=== PATIENT | female | born 1990 | race Caucasian/White ===

== ENCOUNTER → 2017-01-08 | Outpatient (CLI) | payer BC | END | disposition home or self-care (01) | LOC: C.LAB1850 17:08 | PROVIDERS: ATTEND Obstetrics & Gynecology | DX: Z32.01 Encounter for pregnancy test, result positive (principal) ==

== ENCOUNTER → 2017-03-16 | Outpatient (CLI) | payer BC ==
[2017-03-16 11:07] LABS: ESTIMATED AVERAGE GLUCOSE 88 mg/dl; HA1C FLAG Normal (Normal)
[2017-03-16 11:15] LABS: THYROID STIMULATING HORMONE 1.38 uIu/ml (0.300-4.500)
== END | disposition home or self-care (01) ==
LOC: C.LAB 09:45
PROVIDERS: ATTEND Physician Assistant
DX: E28.2 Polycystic ovarian syndrome (principal)

== ENCOUNTER → 2018-06-26 | Outpatient (CLI) | payer BC ==
[2018-06-26 10:56] LABS: BASO % 0.3 %; BASO ABS # 0.02 K/uL (0-0.2); EOS % 1.5 %; EOS ABS # 0.11 K/uL (0-0.5); HEMATOCRIT 44.9 % (37-47); HEMOGLOBIN 15.5 g/dL (12.0-16.0); IG# 0.02 K/uL (0.00-0.02); LYMPH % 26.2 %; LYMPH ABS # 1.91 K/uL (1.2-3.4); MEAN CELL VOLUME 90.9 fL (80-100); MEAN CORPUSCULAR HEMOGLOBIN 31.4 pg (25-34); MEAN CORPUSCULAR HGB CONC 34.5 g/dl (32-36); MEAN PLATELET VOLUME 11.2 fL (7.4-10.4); MONO % 4.7 %; MONO ABS # 0.34 K/uL (0.11-0.59); NEUT ABS # 4.88 K/uL (1.4-6.5); PLATELET COUNT 258 K/uL (130-400); RED CELL DISTRIBUTION WIDTH CV 12.6 % (11.5-14.5); RED CELL DISTRIBUTION WIDTH SD 41.5 fL (36.4-46.3); WHITE BLOOD COUNT 7.28 K/uL (4.8-10.8)
[2018-06-26 11:28] LABS: HEMOGLOBIN A1C 5.1 % (4.5-5.6)
[2018-06-26 11:40] LABS: ALBUMIN 3.7 gm/dl (3.4-5.0); ALKALINE PHOSPHATASE 97 U/L (45-117); ALT/SGPT 60 U/L (12-78); AST/SGOT 24 U/L (15-37); BLOOD UREA NITROGEN 9 mg/dl (7-18); CALCIUM 8.8 mg/dl (8.5-10.1); CARBON DIOXIDE 25 mmol/L (21-32); CHOLESTEROL 145 mg/dl (0-200); CREATININE 0.67 mg/dl (0.60-1.20); GLUCOSE 81 mg/dl (70-99); LDL CHOLESTEROL CALCULATED 79 mg/dl; SODIUM 136 mmol/L (136-145); TOTAL PROTEIN 7.5 gm/dl (6.4-8.2)
== END | disposition home or self-care (01) ==
LOC: C.LAB1850 10:04
PROVIDERS: ATTEND Physician Assistant
DX: E88.81 Metabolic syndrome and other insulin resistance (principal); R53.83 Other fatigue

== ENCOUNTER 2019-05-29 07:34 | Inpatient (IN) ==
[2019-05-29] MEDS ORDERED: INSULIN REGULAR 250 UNITS in SODIUM CHLORIDE 0.9% 247.5 ML IV PRN ×2 (08:28→12:15)
[2019-05-29] MEDS ORDERED: OXYTOCIN 30 UNITS/500 ML BAG IV PRN ×2 (08:28→08:33)
[2019-05-29] MEDS ORDERED: SODIUM CHLORIDE 0.9% 1000ML 1,000 ML IV PRN (08:33)
[2019-05-29] MEDS ORDERED: DEXTROSE 50% 50 ML SYRINGE IV PRN (08:33)
--- NOTE | 2019-05-29 08:39 | History & Physical Report ---
Date of Service May 29, 2019 Assessment & Plan (1) Diabetes mellitus affecting in third trimester: Induction of labor. Cervix ripe s/p [place] which was gently removed during exam this morning via traction. Pitocin to begin now. Epidural on request; had consultation with anesthesia due to ankylosing spondylitis and was felt to be a candidate. Insulin protocol explained to patient and ordered, starting glucose 107 this AM on admission. Present on Admission?: Yes History of Present Illness Chief Complaint: Induction of labor for A2GDM, obesity, with SIUP @ term Primary Care Provider: Pia Nevarez Allergies Allergy/AdvReac Type Severity Reaction Status Date / Time Penicillins Allergy Mild Rash Verified 05/29/19 07:52 Home Medications Home Medications Medication Instructions Recorded Confirmed Type Humulin 70/30 U-100 Insulin 60 units SC HS 03/31/19 05/29/19 History PNV cmb#95-ferrous fumarate-FA 1 tab PO DAILY 03/31/19 05/29/19 History [] aspirin [Aspir-81] 81 mg PO DAILY 03/31/19 05/29/19 History insulin lispro [Humalog KwikPen 8 unit SUBCUT AC 03/31/19 05/29/19 History Insulin] Patient History Medical History BRAN 06/04/19 PCOS (polycystic ovarian syndrome) Asthma Rare albuterol use, only when sick. No maintenance meds. Obesity Ankylosing spondylitis Was previously on Humira and Enbrel, stopped due to to cost. Has had child care aide as well. Has not had imaging for > 10 years. No mobility is sues, does have occasional flare ups causing pain with flexion and extension, but can typically touch her toes. Gestational diabetes On insulin. History of tooth extraction Surgical History History of excision of pilonidal cyst Hx of cholecystectomy in 2011 H/O laparoscopy endometrosis Family History Other Asthma COPD (chronic obstructive pulmonary disease) Hepatitis C History of heart artery stent History of parathyroidectomy Myocardial infarction Social History Preferred Language: Icelandic Communication Ability: Effective Instructor Knitting Required: No Beliefs That Will Affect Care: None marital status: Current Living Situation: Spouse Feels Safe at Home: Yes Safety Concerns: Feels Safe At This Time Smoking Status: Former smoker Tobacco Type: cigarettes and e-cigarettes Second Hand Exposure: No Hx Alcohol Use: No Hx Substance Use: No Review of Systems All systems reviewed & are unremarkable except as noted in HPI & below Physical Exam Constitutional: WD/WN, vitals as above Respiratory: normal respiratory effort; no respiratory distress and does not use accessory muscles Cardiovascular: Rate/Rhythm: regular rate and regular rhythm Gastrointestinal (Abdomen): Obese, gravid, NT Genitourinary: Manual OB Exam: + cervical dilation 4 cm, + cervical effacement 50% and + station high OB Exam Monitor Tracing: + external FHT monitor used, + external uterine monitor used and + category I Cervix soft, posterior Results & Data Vital Signs (Past 12 Hours) Vital Signs Temp Pulse Resp BP 05/29/19 08:12 37.0 C 18 05/29/19 07:46 94 H 112/68
[2019-05-29 08:58] LABS: Hemoglobin 12.3 g/dL (12.0-16.0); Mean Corpuscular Volume 89.8 fL (80-100); Mean Platelet Volume 10.8 fL (7.4-10.4); Platelet Count 178 K/uL (130-400); RDW Coefficient of Variation 14.3 % (11.5-14.5); Red Blood Count 4.01 M/uL (4.2-5.4); White Blood Count 10.69 K/uL (4.8-10.8)
[2019-05-29 09:08] LABS: Mean Corpuscular Hgb Conc 34.2 g/dL (32-36)
[2019-05-29] MEDS ORDERED: CARBOHYDRATES FOR HYPOGLYCEMIA PO PRN (09:15)
[2019-05-29] MEDS ORDERED: GLUCOSE 10 TABS/TUBE PO PRN (09:15)
[2019-05-29] MEDS ORDERED: GLUCOSE 40% GEL 15 GM TUBE PO PRN (09:15)
[2019-05-29] MEDS ORDERED: GLUCAGON FOR INJ 1 MG VIAL IM PRN (09:15)
[2019-05-29] MEDS: DEXTROSE 5% 1,000 ML IV SCH ×2 (09:42→19:50)
[2019-05-29] MEDS: LACTATED RINGER'S 1,000 ML IV PRN ×3 (09:42→19:49)
[2019-05-29] MEDS ORDERED: ePHEDrine sulfate 50 MG/ML AMP ONE (11:56)
[2019-05-29] MEDS ORDERED: BUPIVACAINE 0.25% 30 ML VIAL ONE (11:56)
[2019-05-29] MEDS ORDERED: fentaNYL citrate 100 MCG/2 ML VIAL ONE (11:57)
[2019-05-29] MEDS ORDERED: fentaNYL 2MCG/ML ROPIV 1.25MG/ML 100 ML BAG EPI ONE (11:58)
--- NOTE | 2019-05-29 13:08 | Anesthesiology Consultation ---
Date of Service May 29, 2019 Assessment & Plan (1) Encounter for pre-operative examination: Chart Review Chart Review: Acceptable Risk for Labor Epidural and Patient seen in Pre Admission Testing Consults Requested none ASA ASA3 Proposed Anesthesia Anesthesia Type: Labor Epidural History Height/Weight Height: 5 ft 1 in Weight: 118.444 kg Allergies Allergy/AdvReac Type Severity Reaction Status Date / Time Penicillins Allergy Mild Rash Verified 05/29/19 07:52 Medications Home Medications Medication Instructions Recorded Confirmed Last Taken Humulin 70/30 U-100 Insulin 60 units SC HS 03/31/19 05/29/19 05/27/19 21:00 PNV cmb#95-ferrous fumarate-FA 1 tab PO DAILY 03/31/19 05/29/19 05/27/19 22:00 [] aspirin [Aspir-81] 81 mg PO DAILY 03/31/19 05/29/19 05/27/19 23:55 insulin lispro [Humalog KwikPen 8 unit SUBCUT AC 03/31/19 05/29/19 05/29/19 00:00 Insulin] Active Medications Generic Name Dose Route Start Last Admin Trade Name Freq PRN Reason Stop Dose Admin Dextrose 1,000 mls @ 100 mls/hr 05/29/19 08:45 05/29/19 11:45 D5w IV 06/28/19 08:44 100 mls/hr .Q10H POOJA Infusion Protocol Lactated Ringer's 1,000 mls @ 125 mls/hr 05/29/19 08:28 05/29/19 11:53 Lr IV 05/31/19 08:27 999 mls/hr .Q8H PRN Infusion L&D Protocol Protocol Oxytocin 30 units in 500 mls @ 7 mls/hr 05/29/19 08:33 05/29/19 11:30 Pitocin IV 05/31/19 08:32 0.42 units/hr .Q24H PRN 7 mls/hr Labor Induction/Augmentation Titration Protocol 0.42 UNITS/HR Past Medical History Medical History BRAN 06/04/19 PCOS (polycystic ovarian syndrome) Asthma Rare albuterol use, only when sick. No maintenance meds. Obesity Ankylosing spondylitis Was previously on Humira and Enbrel, stopped due to to cost. Has had care transport nurse as well. Has not had imaging for > 10 years. No mobility issues, does have occasional flare ups causing pain with flexion and extension, but can typically touch her toes. Gestational diabetes On insulin. History of tooth extraction Past Family History Family History Other Asthma COPD (chronic obstructive pulmonary disease) Hepatitis C History of heart artery stent History of parathyroidectomy Myocardial infarction Past Surgical History Surgical History History of excision of pilonidal cyst Hx of cholecystectomy in 2011 H/O laparoscopy endometrosis Social History Smoking Status: Former smoker tobacco type: cigarettes and e-cigarettes Hx Alcohol Use: No Hx Substance Use: No substance use type: does not use Physical Exam Vital Signs Last Vital Signs Temp 36.7 C 05/29/19 12:20 Pulse 88 05/29/19 13:04 Resp 18 05/29/19 12:20 BP 123/58 L 05/29/19 13:04 Pulse Ox 98 05/29/19 13:01 Testing Laboratory Results 05/29/19 08:46 05/29/19 05/29/19 05/29/19 11:43 10:43 09:40 POC Glucose 100 H 105 H 103 H 05/29/19 08:21 POC Glucose 107 H
[2019-05-29] MEDS ORDERED: ePHEDrine sulfate 50 MG/ML AMP IV PRN (13:13)
[2019-05-29] MEDS ORDERED: DiphenhydrAMINE HCL 50 MG/ML VIAL IV PRN (13:13)
[2019-05-29] MEDS ORDERED: NALOXONE HCL 0.4 MG/1 ML VIAL/CARP IV PRN (13:13)
[2019-05-29] MEDS ORDERED: NALBUPHINE HCL INJ 10 MG/ML AMP IV PRN (13:13)
[2019-05-29] MEDS ORDERED: NALOXONE HCL 1 MG in SODIUM CHLORIDE 0.9% 1000ML 1,000 ML IV PRN (13:13)
[2019-05-29] MEDS: ONDANSETRON INJ 2 MG/ML 2 ML VIAL IV PRN (13:55)
--- NOTE | 2019-05-29 16:22 | Labor Progress Brief Note ---
Date of Service May 29, 2019 Subjective Reason For Note: Routine Evaluation Comfortable with Epidural Assessment & Plan (1) Diabetes mellitus affecting in third trimester: Continue upward titration of pitocin. Station and effacement improved. Fluid remains clear. Present on Admission?: Yes Physical Exam Genitourinary: Manual OB Exam: + cervical dilation (Per RN 4cm), + cervical effacement (Per RN 90), + station (Per RN -1) and + amniotic fluid clear OB Exam Monitor Tracing: + category I Results & Data Vital Signs (Past 12 Hours) Vital Signs Temp Pulse Resp BP Pulse Ox 05/29/19 16:16 108 H 104/55 L 97 05/29/19 16:13 99 H 94 05/29/19 16:11 95 H 95 05/29/19 16:06 90 95 05/29/19 16:01 88 109/55 L 96 05/29/19 16:00 18 05/29/19 15:56 101 H 98 05/29/19 15:51 84 98 05/29/19 15:46 85 97 05/29/19 15:45 93 H 96/52 L 05/29/19 15:41 76 96 05/29/19 15:36 82 97 05/29/19 15:31 87 106/51 L 97 05/29/19 15:30 18 05/29/19 15:26 96 H 98 05/29/19 15:21 77 96 05/29/19 15:17 85 89/53 L 05/29/19 15:16 84 96 05/29/19 15:11 74 95 05/29/19 15:06 87 96 05/29/19 15:02 74 107/53 L 05/29/19 15:01 75 97 05/29/19 15:00 37.0 C 20 05/29/19 14:56 75 96 05/29/19 14:51 74 97 05/29/19 14:46 82 97 05/29/19 14:45 86 109/56 L 05/29/19 14:42 75 107/54 L 05/29/19 14:41 81 98 05/29/19 14:36 79 104/56 L 95 05/29/19 14:31 92 H 95 05/29/19 14:30 86 18 102/52 L 05/29/19 14:26 78 97 05/29/19 14:22 76 118/58 L 05/29/19 14:21 81 97 05/29/19 14:16 86 97 05/29/19 14:15 96 H 111/55 L 05/29/19 14:11 87 98 05/29/19 14:10 83 119/73 05/29/19 14:06 95 H 98 05/29/19 14:05 75 132/61 05/29/19 14:01 89 142/60 H 97 05/29/19 14:00 18 05/29/19 13:56 82 97 05/29/19 13:54 99 H 122/64 05/29/19 13:52 94 H 117/58 L 05/29/19 13:51 100 H 98 05/29/19 13:50 97 H 116/55 L 05/29/19 13:48 81 117/61 05/29/19 13:46 89 114/62 98 05/29/19 13:44 81 114/56 L 05/29/19 13:42 84 117/60 05/29/19 13:41 85 98 05/29/19 13:40 110 H 118/61 05/29/19 13:38 85 119/56 L 05/29/19 13:36 84 119/57 L 97 05/29/19 13:34 90 122/63 05/29/19 13:32 78 123/59 L 05/29/19 13:31 88 99 05/29/19 13:30 77 16 121/60 05/29/19 13:28 90 122/61 05/29/19 13:26 81 123/60 99 05/29/19 13:24 100 H 126/65 05/29/19 13:22 87 123/62 05/29/19 13:21 86 99 05/29/19 13:20 91 H 122/61 05/29/19 13:18 87 119/60 05/29/19 13:16 82 122/61 99 05/29/19 13:15 16 05/29/19 13:14 94 H 122/67 05/29/19 13:12 90 124/61 05/29/19 13:11 98 H 98 05/29/19 13:10 84 126/61 05/29/19 13:08 88 123/58 L 05/29/19 13:06 93 H 127/61 99 05/29/19 13:04 88 123/58 L 05/29/19 13:02 99 H 118/58 L 05/29/19 13:01 80 98 05/29/19 13:00 36.9 C 114 H 20 119/60 05/29/19 12:58 110 H 118/61 05/29/19 12:56 91 H 121/58 L 97 05/29/19 12:55 93 H 116/59 L 05/29/19 12:51 94 H 98 05/29/19 12:49 99 H 117/66 05/29/19 12:46 102 H 97 05/29/19 12:41 106 H 98 05/29/19 12:36 94 H 98 05/29/19 12:31 84 99 05/29/19 12:26 81 128/58 L 98 05/29/19 12:20 36.7 C 18 05/29/19 11:46 86 111/65 05/29/19 10:45 37.0 C 05/29/19 10:44 100 H 113/68 05/29/19 09:49 84 110/58 L 05/29/19 08:12 37.0 C 18 05/29/19 07:46 94 H 112/68
[2019-05-29] MEDS: fentaNYL 2MCG/ML ROPIV 1.25MG/ML 100 ML BAG EPI PRN ×2 (20:19→21:51)
--- NOTE | 2019-05-29 21:12 | Labor Progress Brief Note ---
Date of Service May 29, 2019 Subjective Reason For Note: Routine Evaluation Comfortable with Epidural Assessment & Plan (1) Diabetes mellitus affecting in third trimester: COntinue titration of pitocin to MVU 200-250 goal range. Present on Admission?: Yes Physical Exam Physical Exam: Exam 6100/-1 Pitocin has remained at 19 per protocol. [place] Q2 and no further coupling, however cervical change is limited. IUPC placed after patient and FOB counseled on the r/b/a. Clear amniotic fluid fills tubing. Results & Data Vital Signs (Past 12 Hours) Vital Signs Temp Pulse Resp BP Pulse Ox 05/29/19 21:07 84 98 05/29/19 21:02 91 H 95 05/29/19 21:01 99 H 118/59 L 05/29/19 21:00 20 05/29/19 20:57 93 H 94 05/29/19 20:52 97 H 96 05/29/19 20:47 88 97 05/29/19 20:46 97 H 109/55 L 05/29/19 20:42 87 96 05/29/19 20:37 92 H 96 05/29/19 20:32 96 H 94 05/29/19 20:31 94 H 110/63 05/29/19 20:30 20 05/29/19 20:27 88 97 05/29/19 20:22 88 97 05/29/19 20:17 88 95 05/29/19 20:15 86 107/54 L 05/29/19 20:12 92 H 97 05/29/19 20:07 100 H 95 05/29/19 20:02 94 H 95 05/29/19 20:01 89 103/55 L 05/29/19 20:00 20 05/29/19 19:57 97 H 96 05/29/19 19:52 87 97 05/29/19 19:47 79 97 05/29/19 19:45 88 125/54 L 05/29/19 19:42 87 98 05/29/19 19:37 89 98 05/29/19 19:32 85 97 05/29/19 19:31 88 110/55 L 05/29/19 19:30 20 05/29/19 19:27 88 97 05/29/19 19:22 84 96 05/29/19 19:17 90 96 05/29/19 19:16 92 H 117/67 05/29/19 19:12 93 H 95 05/29/19 19:07 87 96 05/29/19 19:05 36.8 C 20 05/29/19 19:02 96 H 109/62 96 05/29/19 18:57 106 H 98 05/29/19 18:52 102 H 98 05/29/19 18:47 92 H 99 05/29/19 18:45 93 H 125/58 L 93 05/29/19 18:42 100 H 96 05/29/19 18:37 102 H 96 05/29/19 18:32 93 H 95 05/29/19 18:30 93 H 18 116/54 L 05/29/19 18:27 82 97 05/29/19 18:22 92 H 95 05/29/19 18:17 94 H 96 05/29/19 18:15 104 H 105/54 L 05/29/19 18:12 88 98 05/29/19 18:07 95 H 96 05/29/19 18:02 94 H 97 05/29/19 18:01 83 108/58 L 05/29/19 18:00 20 05/29/19 17:57 85 96 05/29/19 17:52 84 97 05/29/19 17:47 91 H 97 05/29/19 17:41 110 H 98 05/29/19 17:37 100 H 94 05/29/19 17:36 91 H 95 05/29/19 17:31 97 H 96 05/29/19 17:30 103 H 18 109/56 L 93 05/29/19 17:26 97 H 96 05/29/19 17:21 99 H 96 05/29/19 17:16 100 H 107/57 L 96 05/29/19 17:11 99 H 97 05/29/19 17:06 99 H 97 05/29/19 17:01 93 H 97 05/29/19 17:00 37.1 C 104 H 20 107/56 L 05/29/19 16:58 102 H 94 05/29/19 16:56 93 H 96 05/29/19 16:51 94 H 96 05/29/19 16:46 95 H 97 05/29/19 16:45 96 H 113/56 L 92 05/29/19 16:41 86 97 05/29/19 16:36 95 H 97 05/29/19 16:31 103 H 106/59 L 97 05/29/19 16:30 18 05/29/19 16:26 106 H 98 05/29/19 16:21 99 H 97 05/29/19 16:16 108 H 104/55 L 97 05/29/19 16:13 99 H 94 05/29/19 16:11 95 H 95 05/29/19 16:06 90 95 05/29/19 16:01 88 109/55 L 96 05/29/19 16:00 18 05/29/19 15:56 101 H 98 05/29/19 15:51 84 98 05/29/19 15:46 85 97 05/29/19 15:45 93 H 96/52 L 05/29/19 15:41 76 96 05/29/19 15:36 82 97 05/29/19 15:31 87 106/51 L 97 05/29/19 15:30 18 05/29/19 15:26 96 H 98 05/29/19 15:21 77 96 05/29/19 15:17 85 89/53 L 05/29/19 15:16 84 96 05/29/19 15:11 74 95 05/29/19 15:06 87 96 05/29/19 15:02 74 107/53 L 05/29/19 15:01 75 97 05/29/19 15:00 37.0 C 20 05/29/19 14:56 75 96 05/29/19 14:51 74 97 05/29/19 14:46 82 97 05/29/19 14:45 86 109/56 L 05/29/19 14:42 75 107/54 L 05/29/19 14:41 81 98 05/29/19 14:36 79 104/56 L 95 05/29/19 14:31 92 H 95 05/29/19 14:30 86 18 102/52 L 05/29/19 14:26 78 97 05/29/19 14:22 76 118/58 L 05/29/19 14:21 81 97 05/29/19 14:16 86 97 05/29/19 14:15 96 H 111/55 L 05/29/19 14:11 87 98 05/29/19 14:10 83 119/73 05/29/19 14:06 95 H 98 05/29/19 14:05 75 132/61 05/29/19 14:01 89 142/60 H 97 05/29/19 14:00 18 05/29/19 13:56 82 97 05/29/19 13:54 99 H 122/64 05/29/19 13:52 94 H 117/58 L 05/29/19 13:51 100 H 98 05/29/19 13:50 97 H 116/55 L 05/29/19 13:48 81 117/61 05/29/19 13:46 89 114/62 98 05/29/19 13:44 81 114/56 L 05/29/19 13:42 84 117/60 05/29/19 13:41 85 98 05/29/19 13:40 110 H 118/61 05/29/19 13:38 85 119/56 L 05/29/19 13:36 84 119/57 L 97 05/29/19 13:34 90 122/63 05/29/19 13:32 78 123/59 L 05/29/19 13:31 88 99 05/29/19 13:30 77 16 121/60 05/29/19 13:28 90 122/61 05/29/19 13:26 81 123/60 99 05/29/19 13:24 100 H 126/65 05/29/19 13:22 87 123/62 05/29/19 13:21 86 99 05/29/19 13:20 91 H 122/61 05/29/19 13:18 87 119/60 05/29/19 13:16 82 122/61 99 05/29/19 13:15 16 05/29/19 13:14 94 H 122/67 05/29/19 13:12 90 124/61 05/29/19 13:11 98 H 98 05/29/19 13:10 84 126/61 05/29/19 13:08 88 123/58 L 05/29/19 13:06 93 H 127/61 99 05/29/19 13:04 88 123/58 L 05/29/19 13:02 99 H 118/58 L 05/29/19 13:01 80 98 05/29/19 13:00 36.9 C 114 H 20 119/60 05/29/19 12:58 110 H 118/61 07/05/19 12:56 91 H 121/58 L 97 05/29/19 12:55 93 H 116/59 L 05/29/19 12:51 94 H 98 05/29/19 12:49 99 H 117/66 05/29/19 12:46 102 H 97 05/29/19 12:41 106 H 98 05/29/19 12:36 94 H 98 05/29/19 12:31 84 99 05/29/19 12:26 81 128/58 L 98 05/29/19 12:20 36.7 C 05/29/19 11:46 86 111/65 05/29/19 10:45 37.0 C 05/29/19 10:44 100 H 113/68 05/29/19 09:49 84 110/58 L
[2019-05-29] MEDS ORDERED: Nursing to Pharmacy Communication ONE (21:59)
[2019-05-29] MEDS ORDERED: ACETAMINOPHEN 325 MG TAB PO STA (23:00)
--- NOTE | 2019-05-30 00:14 | Labor Progress Brief Note ---
Date of Service May 30, 2019 Subjective Reason For Note: Routine Evaluation Comfortable with Epidural Assessment & Plan (1) Diabetes mellitus affecting in third trimester: Continue IOL. MVU now adequate and cervical change, while slow, is occurring. status reassuring. Present on Admission?: Yes Physical Exam Genitourinary: Manual OB Exam: + cervical dilation 7 cm, + cervical effacement 100% and + station -1 OB Exam Monitor Tracing: + category I Results & Data Vital Signs (Past 12 Hours) Vital Signs Temp Pulse Resp BP Pulse Ox 05/30/19 00:08 93 H 95 05/30/19 00:03 89 95 05/30/19 00:02 93 H 90/48 L 05/29/19 23:58 92 H 96 05/29/19 23:55 103 H 87 L 05/29/19 23:53 82 96 05/29/19 23:46 90 106/52 L 05/29/19 23:42 87 97 05/29/19 23:37 101 H 96 05/29/19 23:32 92 H 99 05/29/19 23:31 96 H 103/58 L 05/29/19 23:30 20 05/29/19 23:27 86 96 05/29/19 23:22 90 97 05/29/19 23:17 99 H 96 05/29/19 23:16 90 105/57 L 05/29/19 23:12 92 H 98 05/29/19 23:07 101 H 97 05/29/19 23:02 101 H 109/59 L 98 05/29/19 23:00 36.8 C 20 05/29/19 22:57 97 H 97 05/29/19 22:52 98 H 96 05/29/19 22:48 98 H 86 L 05/29/19 22:47 98 H 111/57 L 96 05/29/19 22:42 97 H 97 05/29/19 22:37 88 96 05/29/19 22:32 93 H 96 05/29/19 22:31 96 H 103/52 L 05/29/19 22:30 20 05/29/19 22:27 87 97 05/29/19 22:22 93 H 95 05/29/19 22:17 87 96 05/29/19 22:15 95 H 112/56 L 05/29/19 22:12 94 H 95 05/29/19 22:07 94 H 96 05/29/19 22:02 92 H 100 05/29/19 22:01 96 H 106/54 L 05/29/19 21:57 99 H 97 05/29/19 21:52 98 H 96 05/29/19 21:47 89 96 05/29/19 21:45 100 H 105/56 L 05/29/19 21:42 87 96 05/29/19 21:37 94 H 97 05/29/19 21:32 83 97 05/29/19 21:31 93 H 108/57 L 05/29/19 21:30 20 05/29/19 21:27 89 95 05/29/19 21:22 97 H 96 05/29/19 21:17 94 H 97 05/29/19 21:16 95 H 105/59 L 05/29/19 21:12 90 98 05/29/19 21:07 36.9 C 84 98 05/29/19 21:02 91 H 95 05/29/19 21:01 99 H 118/59 L 05/29/19 21:00 20 05/29/19 20:57 93 H 94 05/29/19 20:52 97 H 96 05/29/19 20:47 88 97 05/29/19 20:46 97 H 109/55 L 05/29/19 20:42 87 96 05/29/19 20:37 92 H 96 05/29/19 20:32 96 H 94 05/29/19 20:31 94 H 110/63 05/29/19 20:30 20 05/29/19 20:27 88 97 05/29/19 20:22 88 97 05/29/19 20:17 88 95 05/29/19 20:15 86 107/54 L 05/29/19 20:12 92 H 97 05/29/19 20:07 100 H 95 05/29/19 20:02 94 H 95 05/29/19 20:01 89 103/55 L 05/29/19 20:00 20 05/29/19 19:57 97 H 96 05/29/19 19:52 87 97 05/29/19 19:47 79 97 05/29/19 19:45 88 125/54 L 05/29/19 19:42 87 98 05/29/19 19:37 89 98 05/29/19 19:32 85 97 05/29/19 19:31 88 110/55 L 05/29/19 19:30 20 05/29/19 19:27 88 97 05/29/19 19:22 84 96 05/29/19 19:17 90 96 05/29/19 19:16 92 H 117/67 05/29/19 19:12 93 H 95 05/29/19 19:07 87 96 05/29/19 19:05 36.8 C 20 05/29/19 19:02 96 H 109/62 96 05/29/19 18:57 106 H 98 05/29/19 18:52 102 H 98 05/29/19 18:47 92 H 99 05/29/19 18:45 93 H 125/58 L 93 05/29/19 18:42 100 H 96 05/29/19 18:37 102 H 96 05/29/19 18:32 93 H 95 05/29/19 18:30 93 H 18 116/54 L 05/29/19 18:27 82 97 05/29/19 18:22 92 H 95 05/29/19 18:17 94 H 96 05/29/19 18:15 104 H 105/54 L 05/29/19 18:12 88 98 05/29/19 18:07 95 H 96 05/29/19 18:02 94 H 97 05/29/19 18:01 83 108/58 L 05/29/19 18:00 20 05/29/19 17:57 85 96 05/29/19 17:52 84 97 05/29/19 17:47 91 H 97 05/29/19 17:41 110 H 98 05/29/19 17:37 100 H 94 05/29/19 17:36 91 H 95 05/29/19 17:31 97 H 96 05/29/19 17:30 103 H 18 109/56 L 93 05/29/19 17:26 97 H 96 05/29/19 17:21 99 H 96 05/29/19 17:16 100 H 107/57 L 96 05/29/19 17:11 99 H 97 05/29/19 17:06 99 H 97 05/29/19 17:01 93 H 97 05/29/19 17:00 37.1 C 104 H 20 107/56 L 05/29/19 16:58 102 H 94 05/29/19 16:56 93 H 96 05/29/19 16:51 94 H 96 05/29/19 16:46 95 H 97 05/29/19 16:45 96 H 113/56 L 92 05/29/19 16:41 86 97 05/29/19 16:36 95 H 97 05/29/19 16:31 103 H 106/59 L 97 05/29/19 16:30 18 05/29/19 16:26 106 H 98 05/29/19 16:21 99 H 97 05/29/19 16:16 108 H 104/55 L 97 05/29/19 16:13 99 H 94 05/29/19 16:11 95 H 95 05/29/19 16:06 90 95 05/29/19 16:01 88 109/55 L 96 05/29/19 16:00 18 05/29/19 15:56 101 H 98 05/29/19 15:51 84 98 05/29/19 15:46 85 97 05/29/19 15:45 93 H 96/52 L 05/29/19 15:41 76 96 05/29/19 15:36 82 97 05/29/19 15:31 87 106/51 L 97 05/29/19 15:30 18 05/29/19 15:26 96 H 98 05/29/19 15:21 77 96 05/29/19 15:17 85 89/53 L 05/29/19 15:16 84 96 05/29/19 15:11 74 95 05/29/19 15:06 87 96 05/29/19 15:02 74 107/53 L 05/29/19 15:01 75 97 05/29/19 15:00 37.0 C 20 05/29/19 14:56 75 96 05/29/19 14:51 74 97 05/29/19 14:46 82 97 05/29/19 14:45 86 109/56 L 05/29/19 14:42 75 107/54 L 05/29/19 14:41 81 98 05/29/19 14:36 79 104/56 L 95 05/29/19 14:31 92 H 95 05/29/19 14:30 86 18 102/52 L 05/29/19 14:26 78 97 05/29/19 14:22 76 118/58 L 05/29/19 14:21 81 97 05/29/19 14:16 86 97 05/29/19 14:15 96 H 111/55 L 05/29/19 14:11 87 98 05/29/19 14:10 83 119/73 05/29/19 14:06 95 H 98 05/29/19 14:05 75 132/61 05/29/19 14:01 89 142/60 H 97 05/29/19 14:00 18 05/29/19 13:56 82 97 05/29/19 13:54 99 H 122/64 05/29/19 13:52 94 H 117/58 L 05/29/19 13:51 100 H 98 05/29/19 13:50 97 H 116/55 L 05/29/19 13:48 81 117/61 05/29/19 13:46 89 114/62 98 05/29/19 13:44 81 114/56 L 05/29/19 13:42 84 117/60 05/29/19 13:41 85 98 05/29/19 13:40 110 H 118/61 05/29/19 13:38 85 119/56 L 05/29/19 13:36 84 119/57 L 97 05/29/19 13:34 90 122/63 05/29/19 13:32 78 123/59 L 05/29/19 13:31 88 99 05/29/19 13:30 77 16 121/60 05/29/19 13:28 90 122/61 05/29/19 13:26 81 123/60 99 05/29/19 13:24 100 H 126/65 05/29/19 13:22 87 123/62 05/29/19 13:21 86 99 05/29/19 13:20 91 H 122/61 05/29/19 13:18 87 119/60 05/29/19 13:16 82 122/61 99 05/29/19 13:15 16 05/29/19 13:14 94 H 122/67 05/29/19 13:12 90 124/61 05/29/19 13:11 98 H 98 05/29/19 13:10 84 126/61 05/29/19 13:08 88 123/58 L 05/29/19 13:06 93 H 127/61 99 05/29/19 13:04 88 123/58 L 05/29/19 13:02 99 H 118/58 L 05/29/19 13:01 80 98 05/29/19 13:00 36.9 C 114 H 20 119/60 05/29/19 12:58 110 H 118/61 05/29/19 12:56 91 H 121/58 L 97 05/29/19 12:55 93 H 116/59 L 05/29/19 12:51 94 H 98 05/29/19 12:49 99 H 117/66 05/29/19 12:46 102 H 97 05/29/19 12:41 106 H 98 05/29/19 12:36 94 H 98 05/29/19 12:31 84 99 05/29/19 12:26 81 128/58 L 98 05/29/19 12:20 36.7 C 18
--- NOTE | 2019-05-30 01:22 | Labor Progress Brief Note ---
Date of Service May 30, 2019 Subjective Per RN, patient was again feeling pressure, so she checked cervix. Assessment & Plan (1) Diabetes mellitus affecting in third trimester: Progress had been occurring until this latest short-interval recheck. Given prolonged use of pitocin with previously adequate contraction, suspect saturation of receptors. Will turn off pitocin for 20 min washout, then restart at half of current dose. Patient also requesting epidural bolus dose; anesthesia aware. Present on Admission?: Yes Physical Exam Physical Exam: Per RN, cervix unchanged from last exam. FHT cat 1 [place] shows strength of contractions intermittently falling to inadequate levels with 15mvu/contraction at times. Pit @ 27. Results & Data Vital Signs (Past 12 Hours) Vital Signs Temp Pulse Resp BP Pulse Ox 05/30/19 01:18 85 95 05/30/19 01:13 96 H 97 05/30/19 01:08 85 94 05/30/19 01:03 83 98 05/30/19 01:00 86 20 110/55 L 05/30/19 00:58 82 98 05/30/19 00:53 79 98 05/30/19 00:48 81 95 05/30/19 00:45 82 117/66 05/30/19 00:43 109 H 97 05/30/19 00:38 90 95 05/30/19 00:33 86 94 05/30/19 00:28 87 94 05/30/19 00:23 90 94 05/30/19 00:18 90 94 05/30/19 00:13 84 94 05/30/19 00:08 93 H 95 05/30/19 00:03 89 95 05/30/19 00:02 93 H 90/48 L 05/29/19 23:58 92 H 96 05/29/19 23:55 103 H 87 L 05/29/19 23:53 82 96 05/29/19 23:46 90 106/52 L 05/29/19 23:42 87 97 05/29/19 23:37 101 H 96 05/29/19 23:32 92 H 99 05/29/19 23:31 96 H 103/58 L 05/29/19 23:30 20 05/29/19 23:27 86 96 05/29/19 23:22 90 97 05/29/19 23:17 99 H 96 05/29/19 23:16 90 105/57 L 05/29/19 23:12 92 H 98 05/29/19 23:07 101 H 97 05/29/19 23:02 101 H 109/59 L 98 05/29/19 23:00 36.8 C 20 05/29/19 22:57 97 H 97 05/29/19 22:52 98 H 96 05/29/19 22:48 98 H 86 L 05/29/19 22:47 98 H 111/57 L 96 05/29/19 22:42 97 H 97 05/29/19 22:37 88 96 05/29/19 22:32 93 H 96 05/29/19 22:31 96 H 103/52 L 05/29/19 22:30 20 05/29/19 22:27 87 97 05/29/19 22:22 93 H 95 05/29/19 22:17 87 96 05/29/19 22:15 95 H 112/56 L 05/29/19 22:12 94 H 95 05/29/19 22:07 94 H 96 05/29/19 22:02 92 H 100 05/29/19 22:01 96 H 106/54 L 05/29/19 21:57 99 H 97 05/29/19 21:52 98 H 96 05/29/19 21:47 89 96 05/29/19 21:45 100 H 105/56 L 05/29/19 21:42 87 96 05/29/19 21:37 94 H 97 05/29/19 21:32 83 97 05/29/19 21:31 93 H 108/57 L 05/29/19 21:30 20 05/29/19 21:27 89 95 05/29/19 21:22 97 H 96 05/29/19 21:17 94 H 97 05/29/19 21:16 95 H 105/59 L 05/29/19 21:12 90 98 05/29/19 21:07 36.9 C 84 98 05/29/19 21:02 91 H 95 05/29/19 21:01 99 H 118/59 L 05/29/19 21:00 20 05/29/19 20:57 93 H 94 05/29/19 20:52 97 H 96 05/29/19 20:47 88 97 05/29/19 20:46 97 H 109/55 L 05/29/19 20:42 87 96 05/29/19 20:37 92 H 96 05/29/19 20:32 96 H 94 05/29/19 20:31 94 H 110/63 05/29/19 20:30 20 05/29/19 20:27 88 97 05/29/19 20:22 88 97 05/29/19 20:17 88 95 05/29/19 20:15 86 107/54 L 05/29/19 20:12 92 H 97 05/29/19 20:07 100 H 95 05/29/19 20:02 94 H 95 05/29/19 20:01 89 103/55 L 05/29/19 20:00 20 05/29/19 19:57 97 H 96 05/29/19 19:52 87 97 05/29/19 19:47 79 97 05/29/19 19:45 88 125/54 L 05/29/19 19:42 87 98 05/29/19 19:37 89 98 05/29/19 19:32 85 97 05/29/19 19:31 88 110/55 L 05/29/19 19:30 20 05/29/19 19:27 88 97 05/29/19 19:22 84 96 05/29/19 19:17 90 96 05/29/19 19:16 92 H 117/67 05/29/19 19:12 93 H 95 05/29/19 19:07 87 96 05/29/19 19:05 36.8 C 20 05/29/19 19:02 96 H 109/62 96 05/29/19 18:57 106 H 98 05/29/19 18:52 102 H 98 05/29/19 18:47 92 H 99 05/29/19 18:45 93 H 125/58 L 93 05/29/19 18:42 100 H 96 05/29/19 18:37 102 H 96 05/29/19 18:32 93 H 95 05/29/19 18:30 93 H 18 116/54 L 05/29/19 18:27 82 97 05/29/19 18:22 92 H 95 05/29/19 18:17 94 H 96 05/29/19 18:15 104 H 105/54 L 05/29/19 18:12 88 98 05/29/19 18:07 95 H 96 07/05/19 18:02 94 H 97 05/29/19 18:01 83 108/58 L 05/29/19 18:00 20 05/29/19 17:57 85 96 05/29/19 17:52 84 97 05/29/19 17:47 91 H 97 05/29/19 17:41 110 H 98 05/29/19 17:37 100 H 94 05/29/19 17:36 91 H 95 05/29/19 17:31 97 H 96 05/29/19 17:30 103 H 18 109/56 L 93 05/29/19 17:26 97 H 96 05/29/19 17:21 99 H 96 05/29/19 17:16 100 H 107/57 L 96 05/29/19 17:11 99 H 97 05/29/19 17:06 99 H 97 05/29/19 17:01 93 H 97 05/29/19 17:00 37.1 C 104 H 20 107/56 L 05/29/19 16:58 102 H 94 05/29/19 16:56 93 H 96 05/29/19 16:51 94 H 96 05/29/19 16:46 95 H 97 05/29/19 16:45 96 H 113/56 L 92 05/29/19 16:41 86 97 05/29/19 16:36 95 H 97 05/29/19 16:31 103 H 106/59 L 97 05/29/19 16:30 18 05/29/19 16:26 106 H 98 05/29/19 16:21 99 H 97 05/29/19 16:16 108 H 104/55 L 97 05/29/19 16:13 99 H 94 05/29/19 16:11 95 H 95 05/29/19 16:06 90 95 05/29/19 16:01 88 109/55 L 96 05/29/19 16:00 18 05/29/19 15:56 101 H 98 05/29/19 15:51 84 98 05/29/19 15:46 85 97 05/29/19 15:45 93 H 96/52 L 05/29/19 15:41 76 96 05/29/19 15:36 82 97 05/29/19 15:31 87 106/51 L 97 05/29/19 15:30 18 05/29/19 15:26 96 H 98 05/29/19 15:21 77 96 05/29/19 15:17 85 89/53 L 05/29/19 15:16 84 96 05/29/19 15:11 74 95 05/29/19 15:06 87 96 05/29/19 15:02 74 107/53 L 05/29/19 15:01 75 97 05/29/19 15:00 37.0 C 20 05/29/19 14:56 75 96 05/29/19 14:51 74 97 05/29/19 14:46 82 97 05/29/19 14:45 86 109/56 L 05/29/19 14:42 75 107/54 L 05/29/19 14:41 81 98 05/29/19 14:36 79 104/56 L 95 05/29/19 14:31 92 H 95 05/29/19 14:30 86 18 102/52 L 05/29/19 14:26 78 97 05/29/19 14:22 76 118/58 L 05/29/19 14:21 81 97 05/29/19 14:16 86 97 05/29/19 14:15 96 H 111/55 L 05/29/19 14:11 87 98 05/29/19 14:10 83 119/73 05/29/19 14:06 95 H 98 05/29/19 14:05 75 132/61 05/29/19 14:01 89 142/60 H 97 05/29/19 14:00 18 05/29/19 13:56 82 97 05/29/19 13:54 99 H 122/64 05/29/19 13:52 94 H 117/58 L 05/29/19 13:51 100 H 98 05/29/19 13:50 97 H 116/55 L 05/29/19 13:48 81 117/61 05/29/19 13:46 89 114/62 98 05/29/19 13:44 81 114/56 L 05/29/19 13:42 84 117/60 05/29/19 13:41 85 98 05/29/19 13:40 110 H 118/61 05/29/19 13:38 85 119/56 L 05/29/19 13:36 84 119/57 L 97 05/29/19 13:34 90 122/63 05/29/19 13:32 78 123/59 L 05/29/19 13:31 88 99 05/29/19 13:30 77 16 121/60 05/29/19 13:28 90 122/61 05/29/19 13:26 81 123/60 99 05/29/19 13:24 100 H 126/65 05/29/19 13:22 87 123/62 05/29/19 13:21 86 99 05/29/19 13:20 91 H 122/61
[2019-05-30] MEDS ORDERED: fentaNYL citrate 100 MCG/2 ML VIAL ONE (01:25)
[2019-05-30] MEDS ORDERED: BUPIVACAINE 0.25% 30 ML VIAL ONE (01:26)
[2019-05-30] MEDS: ONDANSETRON INJ 2 MG/ML 2 ML VIAL IV PRN (01:38)
[2019-05-30] MEDS: fentaNYL 2MCG/ML ROPIV 1.25MG/ML 100 ML BAG EPI PRN (02:07)
[2019-05-30] MEDS: LACTATED RINGER'S 1,000 ML IV PRN (04:03)
[2019-05-30] MEDS: DEXTROSE 5% 1,000 ML IV SCH (06:03)
--- NOTE | 2019-05-30 06:32 | Labor Progress Brief Note ---
Date of Service May 30, 2019 Subjective "I'm over this." Patient expresses frustration, though she is not in pain. Wants to discuss alternatives to continuing induction. Assessment & Plan (1) Diabetes mellitus affecting in third trimester: Patient has inability to achieve consistent MVU despite rising levels of pitocin, and I suspect a component of uterine fatigue as well as likely CPD. Patient is aware that there is no absolute need to stop induction attempt (there was notable descent of the vertex at this exam and the fetus is reassurig) however she is also frustrated, and requests to move to . Given the findings I think this is not unreasonable. Consent process completed at bedside with line by line review of consent while FOB and baby's grandmother present. Patient is aware we will stop pitocin now, and as it is 6:36 with a nursing shift change beginning to occur, that we will plan for move to OR at about 7am. Dr. Reyes is aware and will come in to assist due to morbid obesity of the patient as well. Present on Admission?: Yes Physical Exam Physical Exam: Cervix 7/100/+1 with gumball sized swelling on anterior lip at 12 o'clock. Mild molding now noted. Fluid remains clear. FHT Cat 1 [place] Q2-3 with MVU not adequate and pitocin at 29. Results & Data Vital Signs (Past 12 Hours) Vital Signs Temp Pulse Resp BP Pulse Ox 05/30/19 06:23 93 H 97 05/30/19 06:18 97 H 98 05/30/19 06:14 93 H 106/55 L 05/30/19 06:13 94 H 95 05/30/19 06:08 92 H 94 05/30/19 06:03 93 H 95 05/30/19 05:59 100 H 109/65 05/30/19 05:58 90 96 05/30/19 05:53 88 97 05/30/19 05:48 90 98 05/30/19 05:44 91 H 103/60 05/30/19 05:43 93 H 98 05/30/19 05:38 97 H 97 05/30/19 05:33 96 H 97 05/30/19 05:30 20 05/30/19 05:29 96 H 116/55 L 05/30/19 05:28 96 H 96 05/30/19 05:23 98 H 96 07/06/19 05:19 104 H 86 L 05/30/19 05:18 105 H 95 05/30/19 05:13 86 94 05/30/19 05:08 89 94 05/30/19 05:03 87 94 05/30/19 04:58 89 104/56 L 94 05/30/19 04:53 101 H 95 05/30/19 04:48 103 H 94 05/30/19 04:45 106 H 97/54 L 05/30/19 04:43 89 93 05/30/19 04:38 92 H 93 05/30/19 04:33 90 93 05/30/19 04:30 20 05/30/19 04:29 93 H 107/56 L 05/30/19 04:28 94 H 94 05/30/19 04:23 89 95 05/30/19 04:18 93 H 93 05/30/19 04:15 93 H 106/53 L 05/30/19 04:13 91 H 97 05/30/19 04:08 103 H 95 05/30/19 04:03 94 H 95 05/30/19 04:00 37.0 C 20 05/30/19 03:59 85 95/52 L 05/30/19 03:58 85 94 05/30/19 03:53 98 H 96 05/30/19 03:48 94 H 92 05/30/19 03:43 89 107/57 L 93 05/30/19 03:38 92 H 92 05/30/19 03:33 95 H 93 05/30/19 03:28 94 H 113/55 L 93 05/30/19 03:23 95 H 93 05/30/19 03:18 88 94 05/30/19 03:13 93 H 114/55 L 93 05/30/19 03:08 92 H 95 05/30/19 03:03 87 93 05/30/19 02:59 88 116/58 L 05/30/19 02:58 90 94 05/30/19 02:54 16 05/30/19 02:53 91 H 95 05/30/19 02:50 37.0 C 05/30/19 02:48 91 H 95 05/30/19 02:43 93 H 113/56 L 97 05/30/19 02:38 95 H 94 05/30/19 02:33 91 H 93 05/30/19 02:30 20 05/30/19 02:28 88 118/61 95 05/30/19 02:25 95 H 87 L 05/30/19 02:23 103 H 94 05/30/19 02:18 92 H 93 05/30/19 02:13 95 H 117/59 L 93 05/30/19 02:08 91 H 94 05/30/19 02:03 95 H 96 05/30/19 02:00 20 05/30/19 01:58 87 116/62 95 05/30/19 01:53 92 H 96 05/30/19 01:48 96 H 94 05/30/19 01:43 98 H 95 05/30/19 01:42 92 H 106/64 05/30/19 01:40 94 H 106/59 L 05/30/19 01:38 93 H 107/56 L 94 05/30/19 01:36 94 H 114/64 05/30/19 01:35 93 H 115/68 05/30/19 01:33 91 H 94 05/30/19 01:31 93 H 107/56 L 05/30/19 01:30 20 05/30/19 01:28 88 95 05/30/19 01:23 87 96 05/30/19 01:18 85 95 05/30/19 01:13 96 H 97 05/30/19 01:08 85 94 05/30/19 01:03 83 98 05/30/19 01:00 37.0 C 86 20 110/55 L 05/30/19 00:58 82 98 05/30/19 00:53 79 98 05/30/19 00:48 81 95 05/30/19 00:45 82 117/66 05/30/19 00:43 109 H 97 05/30/19 00:38 90 95 05/30/19 00:33 86 94 05/30/19 00:28 87 94 05/30/19 00:23 90 94 05/30/19 00:18 90 94 05/30/19 00:13 84 94 05/30/19 00:08 93 H 95 05/30/19 00:03 89 95 05/30/19 00:02 93 H 90/48 L 05/29/19 23:58 92 H 96 05/29/19 23:55 103 H 87 L 05/29/19 23:53 82 96 05/29/19 23:46 90 106/52 L 05/29/19 23:42 87 97 05/29/19 23:37 101 H 96 05/29/19 23:32 92 H 99 05/29/19 23:31 96 H 103/58 L 05/29/19 23:30 20 05/29/19 23:27 86 96 05/29/19 23:22 90 97 05/29/19 23:17 99 H 96 05/29/19 23:16 90 105/57 L 05/29/19 23:12 92 H 98 05/29/19 23:07 101 H 97 05/29/19 23:02 101 H 109/59 L 98 05/29/19 23:00 36.8 C 20 05/29/19 22:57 97 H 97 05/29/19 22:52 98 H 96 05/29/19 22:48 98 H 86 L 05/29/19 22:47 98 H 111/57 L 96 05/29/19 22:42 97 H 97 05/29/19 22:37 88 96 05/29/19 22:32 93 H 96 05/29/19 22:31 96 H 103/52 L 05/29/19 22:30 20 05/29/19 22:27 87 97 05/29/19 22:22 93 H 95 05/29/19 22:17 87 96 05/29/19 22:15 95 H 112/56 L 05/29/19 22:12 94 H 95 05/29/19 22:07 94 H 96 05/29/19 22:02 92 H 100 05/29/19 22:01 96 H 106/54 L 05/29/19 21:57 99 H 97 05/29/19 21:52 98 H 96 05/29/19 21:47 89 96 05/29/19 21:45 100 H 105/56 L 05/29/19 21:42 87 96 05/29/19 21:37 94 H 97 05/29/19 21:32 83 97 05/29/19 21:31 93 H 108/57 L 05/29/19 21:30 20 05/29/19 21:27 89 95 05/29/19 21:22 97 H 96 05/29/19 21:17 94 H 97 05/29/19 21:16 95 H 105/59 L 05/29/19 21:12 90 98 05/29/19 21:07 36.9 C 84 98 05/29/19 21:02 91 H 95 05/29/19 21:01 99 H 118/59 L 05/29/19 21:00 20 05/29/19 20:57 93 H 94 05/29/19 20:52 97 H 96 05/29/19 20:47 88 97 05/29/19 20:46 97 H 109/55 L 05/29/19 20:42 87 96 05/29/19 20:37 92 H 96 05/29/19 20:32 96 H 94 05/29/19 20:31 94 H 110/63 05/29/19 20:30 20 05/29/19 20:27 88 97 05/29/19 20:22 88 97 05/29/19 20:17 88 95 05/29/19 20:15 86 107/54 L 05/29/19 20:12 92 H 97 05/29/19 20:07 100 H 95 05/29/19 20:02 94 H 95 05/29/19 20:01 89 103/55 L 05/29/19 20:00 20 05/29/19 19:57 97 H 96 05/29/19 19:52 87 97 05/29/19 19:47 79 97 05/29/19 19:45 88 125/54 L 05/29/19 19:42 87 98 05/29/19 19:37 89 98 05/29/19 19:32 85 97 05/29/19 19:31 88 110/55 L 05/29/19 19:30 20 05/29/19 19:27 88 97 05/29/19 19:22 84 96 05/29/19 19:17 90 96 05/29/19 19:16 92 H 117/67 05/29/19 19:12 93 H 95 05/29/19 19:07 87 96 05/29/19 19:05 36.8 C 20 05/29/19 19:02 96 H 109/62 96 05/29/19 18:57 106 H 98 05/29/19 18:52 102 H 98 05/29/19 18:47 92 H 99 05/29/19 18:45 93 H 125/58 L 93 05/29/19 18:42 100 H 96 05/29/19 18:37 102 H 96 05/29/19 18:32 93 H 95 05/29/19 18:30 93 H 18 116/54 L
[2019-05-30] MEDS ORDERED: CEFAZOLIN 3000MG 65 ML IV SCH (06:45)
[2019-05-30] MEDS ORDERED: CITRIC ACID/SODIUM CITRATE 15 ML UDC PO SCH (06:45)
[2019-05-30] MEDS ORDERED: LIDOCAINE/EPINEPHRINE 2% 1:200,000 20 ML SDV ONE (06:56)
[2019-05-30] MEDS ORDERED: ONDANSETRON INJ 2 MG/ML 2 ML VIAL ONE (06:56)
[2019-05-30] MEDS ORDERED: PHENYLEPHRINE 100MCG/ML 5ML SYR ONE (06:56)
[2019-05-30] MEDS ORDERED: fentaNYL citrate 100 MCG/2 ML VIAL INT SPINAL STA (07:03)
[2019-05-30] MEDS ORDERED: OXYTOCIN 10 UNITS/ML VIAL ONE ×2 (07:25→08:12)
[2019-05-30] MEDS ORDERED: DC INTRASPINAL MORPHINE SCH (07:36)
[2019-05-30] MEDS ORDERED: MoRPHine SULFATE PF 1 MG/ML 10 ML AMP/VIAL ONE (07:36)
[2019-05-30] MEDS ORDERED: MoRPHine SULFATE PF 1 MG/ML 10 ML AMP/VIAL EPI ONE (07:51)
[2019-05-30] MEDS ORDERED: PROMETHAZINE HCL 25 MG in SODIUM CHLORIDE 0.9% 50 ML IV PRN (07:51)
[2019-05-30] MEDS ORDERED: NALOXONE HCL 1 MG in SODIUM CHLORIDE 0.9% 1000ML 1,000 ML IV PRN (07:51)
[2019-05-30] MEDS ORDERED: ePHEDrine sulfate 50 MG/ML AMP IV PRN (07:51)
[2019-05-30] MEDS ORDERED: HYDROmorphone INJ 0.5 MG/0.5 ML SYR IV PRN (07:51)
[2019-05-30] MEDS ORDERED: NALBUPHINE HCL INJ 10 MG/ML AMP IV PRN (07:51)
[2019-05-30] MEDS ORDERED: LACTATED RINGER'S 500 ML IV PRN (07:51)
[2019-05-30] MEDS ORDERED: DiphenhydrAMINE HCL 50 MG/ML VIAL IV PRN ×2 (07:51→07:58)
[2019-05-30] MEDS ORDERED: MoRPHine SULFATE 2 MG/ML CARP IV PRN (07:51)
[2019-05-30] MEDS ORDERED: ONDANSETRON INJ 2 MG/ML 2 ML VIAL IV PRN (07:51)
[2019-05-30] MEDS ORDERED: NALOXONE HCL 0.4 MG/1 ML VIAL/CARP IV PRN (07:51)
[2019-05-30] MEDS ORDERED: NALOXONE HCL 0.08 MG in SYRINGE 1.8 ML IV PRN (07:51)
--- NOTE | 2019-05-30 07:59 | Operative Report ---
Post Operative Report Pre & Post Diagnosis Operation Date: 05/30/19 07:00 Pre-Op Diagnosis: Failure to progress Post-Op Diagnosis: Same; Delivery of a live female child at 0729 Procedure Operation Date: 05/30/19 07:00 Actual Procedures p Low Transverse Section in LD(Bilateral) - Alexa Michelle MD Surgeon Alexa Michelle MD Dentofacial Orthopedics Dentist Amy Estimated Blood Loss 750 Findings Consistent with Post-Op Diagnosis Normal tubes and ovaries Specimens Cord blood Placenta for exam Anesthesia Type Spinal Complications none Disposition Accompanied Patient To Recovery: Yes Disposition: L&D Description of Procedure The patient was brought to the operating room and placed on the table in the supine position with a leftward tilt, then prepped and draped in standard sterile fashion. A hard time out was taken prior to proceeding. A pfannensteil incision was created sharply and carried down to the fascia using bovie electrocautery. The fascia was nicked and then extended using palmer scissors. The edges of the fascia were grasped with Corry clamps and elevated, then sharply and bluntly dissected off the underlying rectus. The midline of the rectus was identified and bluntly . The peritoneum was bluntly entered, and this entry was extended using pressure from the surgeon's hands. An Abad O-Ring retractor was employed. The bladder retractor was placed and the lower uterine segment was examined and found to be well developed. A bladder flap was created and the retractor was replaced behind this flap to protect the bladder. A transverse lower uterine incision was then created, with final entry to the uterine cavity made in a blunt manner with the surgeon's finger. Clear amniotic fluid was encountered. The head was elevated to the incision and delivered using mild fundal pressure. The cord was doubly clamped and cut, then the vigorous infant was taken to the warmer for patient coordinator care. The placenta was manually extracted, then the uterus was gently exteriorized from the maternal abdomen. The cavity was cleared of clot and debris using a dry lap sponge. The angles of the incision were identified with allis clamps, and the hysterotomy was then repaired in running locked fashion using 0-vicryl suture, followed by a second imbricating layer. The tubes and ovaries were examined and found to be normal bilaterally. The posterior gutter was irrigated and cleared of clot and debris. The uterus was then gently re-internalized to the abdomen. Lateral gutters were cleared of clot and debris using a damp lap sponge, and a final exam of the hysterotomy revealed good hemostasis. The Abad was removed. The rectus muscles were allowed to reapproximate naturally. The angle of the fascia was grasped with a Corry clamp and the fascia was then repaired in running non-locked fashion with 1-vicryl suture. At the completion of repair, the fascia was examined and found to be free of any defect. The subcutaneous tissue was copiously irrigated and then reapproximated using 3-0 chromic. The skin was then closed using 4-0 monocryl in a running subcuticular fashion and a dermabond dressing was applied. The gilliland was noted to be draining clear yellow urine as the patient was transferred back to her recovery room. I attest to the content of the Intraoperative Record and any orders documented therein. Any exceptions are noted below.
[2019-05-30] MEDS ORDERED: SODIUM CHLORIDE 0.9% 1000ML 1,000 ML IV SCH (08:00)
[2019-05-30] MEDS ORDERED: NO NARCOTICS OR SEDATIVES SCH (08:00)
[2019-05-30] MEDS ORDERED: MAGNESIUM HYDROXIDE SUSP 30 ML UDC PO PRN (08:05)
[2019-05-30] MEDS ORDERED: SUPERCREAM 0.870% 15 GM JAR EXT PRN (08:05)
[2019-05-30] MEDS ORDERED: BENZOCAINE 20% AER SPR 82.5 GM CAN EXT PRN (08:05)
[2019-05-30] MEDS ORDERED: DIPHTHERIA/TETANUS/PERTUSSIS 0.5 ML SYR/VIAL IM ONE (08:05)
[2019-05-30] MEDS ORDERED: HYDROCORTISONE ACETATE 25 MG SUPP PR PRN (08:05)
[2019-05-30] MEDS ORDERED: LACTATED RINGER'S 1,000 ML IV SCH (08:15)
[2019-05-30] MEDS ORDERED: OXYTOCIN 30 UNITS in LACTATED RINGER'S 1,000 ML IV SCH (08:15)
--- NOTE | 2019-05-30 08:16 | Anesthesia Procedure Note ---
Date of Service May 30, 2019 Anesthesia Post Epidural Note Vital Signs Vital Signs: Temp Pulse Resp BP Pulse Ox 37.0 C 104 H 20 131/65 98 05/30/19 04:00 05/30/19 08:12 05/30/19 06:30 05/30/19 08:11 05/30/19 08:12 Pain Intensity Back: Pain Intensity: 0 Notes Mental Status: alert / awake / arousable Patient Amnestic to Procedure: No Nausea / Vomiting: adequately controlled Pain: adequately controlled Airway Patency, RR, SpO2: stable & adequate BP & HR: stable & adequate Hydration State: stable & adequate Neuraxial Anesthesia: was administered and sensory block is resolving Anesthetic Complications: no major complications apparent and Pt Satisfied with anesthetic care Epidural: Removed without complications and With tip intact
--- NOTE | 2019-05-30 08:16 | Anesthesiology Progress Note ---
Date of Service May 30, 2019 Anesthesia Post Procedure Vital Signs Vital Signs: Temp Pulse Resp BP Pulse Ox 05/30/19 08:12 104 H 98 05/30/19 08:11 100 H 131/65 05/30/19 08:09 94 H 88 L 05/30/19 08:07 93 H 99 05/30/19 06:59 102 H 95 05/30/19 06:58 100 H 100/58 L 05/30/19 06:54 99 H 95 05/30/19 06:49 105 H 95 05/30/19 06:44 105 H 97 05/30/19 06:43 104 H 113/59 L 05/30/19 06:39 102 H 96 05/30/19 06:34 108 H 99 05/30/19 06:30 20 05/30/19 06:29 100 H 114/60 05/30/19 06:28 96 H 94 05/30/19 06:23 93 H 97 05/30/19 06:18 97 H 98 05/30/19 06:14 93 H 106/55 L 05/30/19 06:13 94 H 95 05/30/19 06:08 92 H 94 05/30/19 06:03 93 H 95 05/30/19 05:59 100 H 109/65 05/30/19 05:58 90 96 05/30/19 05:53 88 97 05/30/19 05:48 90 98 05/30/19 05:44 91 H 103/60 05/30/19 05:43 93 H 98 05/30/19 05:38 97 H 97 05/30/19 05:33 96 H 97 05/30/19 05:30 20 05/30/19 05:29 96 H 116/55 L 05/30/19 05:28 96 H 96 05/30/19 05:23 98 H 96 05/30/19 05:19 104 H 86 L 05/30/19 05:18 105 H 95 05/30/19 05:13 86 94 05/30/19 05:08 89 94 05/30/19 05:03 87 94 05/30/19 04:58 89 104/56 L 94 05/30/19 04:53 101 H 95 05/30/19 04:48 103 H 94 05/30/19 04:45 106 H 97/54 L 05/30/19 04:43 89 93 05/30/19 04:38 92 H 93 05/30/19 04:33 90 93 05/30/19 04:30 20 05/30/19 04:29 93 H 107/56 L 05/30/19 04:28 94 H 94 05/30/19 04:23 89 95 05/30/19 04:18 93 H 93 05/30/19 04:15 93 H 106/53 L 05/30/19 04:13 91 H 97 05/30/19 04:08 103 H 95 05/30/19 04:03 94 H 95 05/30/19 04:00 37.0 C 20 05/30/19 03:59 85 95/52 L 05/30/19 03:58 85 94 05/30/19 03:53 98 H 96 05/30/19 03:48 94 H 92 05/30/19 03:43 89 107/57 L 93 05/30/19 03:38 92 H 92 05/30/19 03:33 95 H 93 05/30/19 03:28 94 H 113/55 L 93 05/30/19 03:23 95 H 93 05/30/19 03:18 88 94 05/30/19 03:13 93 H 114/55 L 93 05/30/19 03:08 92 H 95 05/30/19 03:03 87 93 05/30/19 02:59 88 116/58 L 05/30/19 02:58 90 94 05/30/19 02:54 16 05/30/19 02:53 91 H 95 05/30/19 02:50 37.0 C 05/30/19 02:48 91 H 95 05/30/19 02:43 93 H 113/56 L 97 05/30/19 02:38 95 H 94 05/30/19 02:33 91 H 93 05/30/19 02:30 20 05/30/19 02:28 88 118/61 95 05/30/19 02:25 95 H 87 L 05/30/19 02:23 103 H 94 05/30/19 02:18 92 H 93 05/30/19 02:13 95 H 117/59 L 93 05/30/19 02:08 91 H 94 05/30/19 02:03 95 H 96 05/30/19 02:00 20 05/30/19 01:58 87 116/62 95 05/30/19 01:53 92 H 96 05/30/19 01:48 96 H 94 05/30/19 01:43 98 H 95 05/30/19 01:42 92 H 106/64 05/30/19 01:40 94 H 106/59 L 05/30/19 01:38 93 H 107/56 L 94 05/30/19 01:36 94 H 114/64 05/30/19 01:35 93 H 115/68 05/30/19 01:33 91 H 94 05/30/19 01:31 93 H 107/56 L 05/30/19 01:30 20 05/30/19 01:28 88 95 05/30/19 01:23 87 96 05/30/19 01:18 85 95 05/30/19 01:13 96 H 97 05/30/19 01:08 85 94 05/30/19 01:03 83 98 05/30/19 01:00 37.0 C 86 20 110/55 L 05/30/19 00:58 82 98 05/30/19 00:53 79 98 05/30/19 00:48 81 95 05/30/19 00:45 82 117/66 05/30/19 00:43 109 H 97 05/30/19 00:38 90 95 05/30/19 00:33 86 94 05/30/19 00:28 87 94 05/30/19 00:23 90 94 05/30/19 00:18 90 94 05/30/19 00:13 84 94 05/30/19 00:08 93 H 95 05/30/19 00:03 89 95 05/30/19 00:02 93 H 90/48 L 05/29/19 23:58 92 H 96 05/29/19 23:55 103 H 87 L 05/29/19 23:53 82 96 05/29/19 23:46 90 106/52 L 05/29/19 23:42 87 97 05/29/19 23:37 101 H 96 05/29/19 23:32 92 H 99 05/29/19 23:31 96 H 103/58 L 05/29/19 23:30 20 05/29/19 23:27 86 96 05/29/19 23:22 90 97 05/29/19 23:17 99 H 96 05/29/19 23:16 90 105/57 L 05/29/19 23:12 92 H 98 05/29/19 23:07 101 H 97 05/29/19 23:02 101 H 109/59 L 98 05/29/19 23:00 36.8 C 20 05/29/19 22:57 97 H 97 05/29/19 22:52 98 H 96 05/29/19 22:48 98 H 86 L 05/29/19 22:47 98 H 111/57 L 96 05/29/19 22:42 97 H 97 05/29/19 22:37 88 96 05/29/19 22:32 93 H 96 05/29/19 22:31 96 H 103/52 L 05/29/19 22:30 20 05/29/19 22:27 87 97 05/29/19 22:22 93 H 95 05/29/19 22:17 87 96 05/29/19 22:15 95 H 112/56 L 05/29/19 22:12 94 H 95 05/29/19 22:07 94 H 96 05/29/19 22:02 92 H 100 05/29/19 22:01 96 H 106/54 L 05/29/19 21:57 99 H 97 05/29/19 21:52 98 H 96 05/29/19 21:47 89 96 05/29/19 21:45 100 H 105/56 L 05/29/19 21:42 87 96 05/29/19 21:37 94 H 97 05/29/19 21:32 83 97 05/29/19 21:31 93 H 108/57 L 05/29/19 21:30 20 05/29/19 21:27 89 95 05/29/19 21:22 97 H 96 05/29/19 21:17 94 H 97 05/29/19 21:16 95 H 105/59 L 05/29/19 21:12 90 98 05/29/19 21:07 36.9 C 84 98 05/29/19 21:02 91 H 95 05/29/19 21:01 99 H 118/59 L 05/29/19 21:00 20 05/29/19 20:57 93 H 94 05/29/19 20:52 97 H 96 05/29/19 20:47 88 97 05/29/19 20:46 97 H 109/55 L 05/29/19 20:42 87 96 05/29/19 20:37 92 H 96 05/29/19 20:32 96 H 94 05/29/19 20:31 94 H 110/63 05/29/19 20:30 20 05/29/19 20:27 88 97 05/29/19 20:22 88 97 05/29/19 20:17 88 95 05/29/19 20:15 86 107/54 L 05/29/19 20:12 92 H 97 05/29/19 20:07 100 H 95 05/29/19 20:02 94 H 95 05/29/19 20:01 89 103/55 L 05/29/19 20:00 20 05/29/19 19:57 97 H 96 05/29/19 19:52 87 97 05/29/19 19:47 79 97 05/29/19 19:45 88 125/54 L 05/29/19 19:42 87 98 05/29/19 19:37 89 98 05/29/19 19:32 85 97 05/29/19 19:31 88 110/55 L 05/29/19 19:30 20 05/29/19 19:27 88 97 05/29/19 19:22 84 96 05/29/19 19:17 90 96 05/29/19 19:16 92 H 117/67 05/29/19 19:12 93 H 95 05/29/19 19:07 87 96 05/29/19 19:05 36.8 C 20 05/29/19 19:02 96 H 109/62 96 05/29/19 18:57 106 H 98 05/29/19 18:52 102 H 98 05/29/19 18:47 92 H 99 05/29/19 18:45 93 H 125/58 L 93 05/29/19 18:42 100 H 96 05/29/19 18:37 102 H 96 05/29/19 18:32 93 H 95 05/29/19 18:30 93 H 18 116/54 L 05/29/19 18:27 82 97 05/29/19 18:22 92 H 95 05/29/19 18:17 94 H 96 05/29/19 18:15 104 H 105/54 L 05/29/19 18:12 88 98 05/29/19 18:07 95 H 96 05/29/19 18:02 94 H 97 05/29/19 18:01 83 108/58 L 05/29/19 18:00 20 05/29/19 17:57 85 96 05/29/19 17:52 84 97 05/29/19 17:47 91 H 97 05/29/19 17:41 110 H 98 05/29/19 17:37 100 H 94 05/29/19 17:36 91 H 95 05/29/19 17:31 97 H 96 05/29/19 17:30 103 H 18 109/56 L 93 05/29/19 17:26 97 H 96 05/29/19 17:21 99 H 96 05/29/19 17:16 100 H 107/57 L 96 05/29/19 17:11 99 H 97 05/29/19 17:06 99 H 97 05/29/19 17:01 93 H 97 05/29/19 17:00 37.1 C 104 H 20 107/56 L 05/29/19 16:58 102 H 94 05/29/19 16:56 93 H 96 05/29/19 16:51 94 H 96 05/29/19 16:46 95 H 97 05/29/19 16:45 96 H 113/56 L 92 05/29/19 16:41 86 97 05/29/19 16:36 95 H 97 05/29/19 16:31 103 H 106/59 L 97 05/29/19 16:30 18 05/29/19 16:26 106 H 98 05/29/19 16:21 99 H 97 05/29/19 16:16 108 H 104/55 L 97 05/29/19 16:13 99 H 94 05/29/19 16:11 95 H 95 05/29/19 16:06 90 95 05/29/19 16:01 88 109/55 L 96 05/29/19 16:00 18 05/29/19 15:56 101 H 98 05/29/19 15:51 84 98 05/29/19 15:46 85 97 05/29/19 15:45 93 H 96/52 L 05/29/19 15:41 76 96 05/29/19 15:36 82 97 05/29/19 15:31 87 106/51 L 97 05/29/19 15:30 18 05/29/19 15:26 96 H 98 05/29/19 15:21 77 96 05/29/19 15:17 85 89/53 L 05/29/19 15:16 84 96 05/29/19 15:11 74 95 05/29/19 15:06 87 96 05/29/19 15:02 74 107/53 L 05/29/19 15:01 75 97 05/29/19 15:00 37.0 C 20 05/29/19 14:56 75 96 05/29/19 14:51 74 97 05/29/19 14:46 82 97 05/29/19 14:45 86 109/56 L 05/29/19 14:42 75 107/54 L 05/29/19 14:41 81 98 05/29/19 14:36 79 104/56 L 95 05/29/19 14:31 92 H 95 05/29/19 14:30 86 18 102/52 L 05/29/19 14:26 78 97 05/29/19 14:22 76 118/58 L 05/29/19 14:21 81 97 05/29/19 14:16 86 97 05/29/19 14:15 96 H 111/55 L 05/29/19 14:11 87 98 05/29/19 14:10 83 119/73 05/29/19 14:06 95 H 98 05/29/19 14:05 75 132/61 05/29/19 14:01 89 142/60 H 97 05/29/19 14:00 18 05/29/19 13:56 82 97 05/29/19 13:54 99 H 122/64 05/29/19 13:52 94 H 117/58 L 05/29/19 13:51 100 H 98 05/29/19 13:50 97 H 116/55 L 05/29/19 13:48 81 117/61 05/29/19 13:46 89 114/62 98 05/29/19 13:44 81 114/56 L 05/29/19 13:42 84 117/60 05/29/19 13:41 85 98 05/29/19 13:40 110 H 118/61 05/29/19 13:38 85 119/56 L 05/29/19 13:36 84 119/57 L 97 05/29/19 13:34 90 122/63 05/29/19 13:32 78 123/59 L 05/29/19 13:31 88 99 05/29/19 13:30 77 16 121/60 05/29/19 13:28 90 122/61 05/29/19 13:26 81 123/60 99 05/29/19 13:24 100 H 126/65 05/29/19 13:22 87 123/62 05/29/19 13:21 86 99 05/29/19 13:20 91 H 122/61 05/29/19 13:18 87 119/60 05/29/19 13:16 82 122/61 99 05/29/19 13:15 16 05/29/19 13:14 94 H 122/67 05/29/19 13:12 90 124/61 05/29/19 13:11 98 H 98 05/29/19 13:10 84 126/61 05/29/19 13:08 88 123/58 L 05/29/19 13:06 93 H 127/61 99 05/29/19 13:04 88 123/58 L 05/29/19 13:02 99 H 118/58 L 05/29/19 13:01 80 98 05/29/19 13:00 36.9 C 114 H 20 119/60 05/29/19 12:58 110 H 118/61 05/29/19 12:56 91 H 121/58 L 97 05/29/19 12:55 93 H 116/59 L 05/29/19 12:51 94 H 98 05/29/19 12:49 99 H 117/66 05/29/19 12:46 102 H 97 05/29/19 12:41 106 H 98 05/29/19 12:36 94 H 98 05/29/19 12:31 84 99 05/29/19 12:26 81 128/58 L 98 05/29/19 12:20 36.7 C 18 05/29/19 11:46 86 111/65 05/29/19 10:45 37.0 C 18 05/29/19 10:44 100 H 113/68 05/29/19 09:49 84 110/58 L Pain Intensity Back: Pain Intensity: 0 Transfer of Care Handoff Completed per policy Notes Mental Status: alert / awake / arousable Patient Amnestic to Procedure: No Nausea / Vomiting: adequately controlled Pain: adequately controlled Airway Patency, RR, SpO2: stable & adequate BP & HR: stable & adequate Hydration State: stable & adequate Neuraxial Anesthesia: was administered and sensory block is resolving Anesthetic Complications: no major complications apparent and Pt Satisfied with anesthetic care
[2019-05-30] MEDS: KETOROLAC 30 MG/ML VIAL IV PRN ×3 (09:06→23:29)
[2019-05-30] MEDS: SIMETHICONE 80 MG CHEW PO SCH ×2 (16:07→19:59)
[2019-05-30] MEDS: DOCUSATE SODIUM 100 MG CAP PO SCH (19:59)
[2019-05-31] MEDS ORDERED: DC INTRASPINAL MORPHINE SCH (01:51)
[2019-05-31] MEDS ORDERED: DiphenhydrAMINE HCL 50 MG/ML VIAL IV PRN (01:53)
[2019-05-31] MEDS ORDERED: MEPERIDINE HCL 50 MG/ML CARP IV PRN (01:53)
[2019-05-31] MEDS ORDERED: PROMETHAZINE HCL 25 MG in SODIUM CHLORIDE 0.9% 50 ML IV PRN (01:53)
[2019-05-31] MEDS ORDERED: ONDANSETRON INJ 2 MG/ML 2 ML VIAL IV PRN (01:53)
[2019-05-31] MEDS ORDERED: KETOROLAC 30 MG/ML VIAL IV PRN (01:53)
[2019-05-31] MEDS: IBUPROFEN 600 MG TAB PO PRN ×4 (06:16→19:40)
[2019-05-31] MEDS: OXYCODONE/ACETAMINOPHEN 5mg/325mg TAB PO PRN ×4 (06:17→19:39)
[2019-05-31 06:20] LABS: Basophils # (auto) 0.01 K/uL (0-0.2); Basophils % (auto) 0.1 %; Eosinophils # (auto) 0.08 K/uL (0-0.5); Eosinophils % (auto) 0.7 %; Hematocrit (blood only) 30.2 % (37-47); Hemoglobin 10.2 g/dL (12.0-16.0); Immature Granulocytes # (auto) 0.04 K/uL (0.00-0.02); Immature Granulocytes % (auto) 0.4 %; Lymphocytes % (auto) 10.7 %; Mean Corpuscular Hgb Conc 33.8 g/dL (32-36); Mean Corpuscular Volume 90.4 fL (80-100); Mean Platelet Volume 10.9 fL (7.4-10.4); Monocytes # (auto) 0.75 K/uL (0.11-0.59); Monocytes % (auto) 6.7 %; Neutrophils # (auto) 9.17 K/uL (1.4-6.5); Neutrophils % (auto) 81.4 %; Platelet Count 155 K/uL (130-400); RDW Coefficient of Variation 14.2 % (11.5-14.5); RDW Standard Deviation 46.7 fL (36.4-46.3); Red Blood Count 3.34 M/uL (4.2-5.4); White Blood Count 11.25 K/uL (4.8-10.8)
[2019-05-31] MEDS: DOCUSATE SODIUM 100 MG CAP PO SCH ×2 (08:20→19:39)
[2019-05-31] MEDS: PRENATAL VITAMIN 1 TAB PO SCH (08:20)
[2019-05-31] MEDS: FERROUS SULFATE 325 MG TAB PO SCH (08:21)
[2019-05-31] MEDS: SIMETHICONE 80 MG CHEW PO SCH ×4 (08:21→19:39)
--- NOTE | 2019-05-31 09:05 | Obstetrical Progress Note ---
Date of Service May 31, 2019 Postop day #1 from section the patient is doing well she is beginning to ambulate her catheter is been removed and she is able to void her pain is well controlled she has minimal bleeding and no extremity pain Assessment & Plan (1) 39 weeks gestation of : Postop day #1 continue current care Physical Exam Patient appears well abdomen is soft and nontender uterus is firm nontender incision is clean dry and intact extremity exam negative Results & Data Vital Signs (Past 12 Hours) Vital Signs Temp Pulse Resp BP Pulse Ox 05/31/19 07:17 36.6 C 83 16 112/72 05/31/19 04:10 36.7 C 87 16 128/78 97 05/31/19 02:00 16 95 05/31/19 01:00 15 97 05/31/19 00:00 15 97 05/30/19 23:30 36.8 C 94 H 17 103/65 97 05/30/19 23:00 16 95 05/30/19 22:00 17 97
[2019-06-01] MEDS: IBUPROFEN 600 MG TAB PO PRN ×3 (02:54→12:18)
[2019-06-01] MEDS: OXYCODONE/ACETAMINOPHEN 5mg/325mg TAB PO PRN ×3 (02:55→12:18)
--- NOTE | 2019-06-01 06:46 | Obstetrical Progress Note ---
Date of Service June 01, 2019 Postoperative day #2 from section the patient is well she wishes to go home today she is ambulating well tolerating oral diet she has no extremity pain Assessment & Plan (1) Encounter for pre-operative examination: Meets discharge criteria discharge home discharge instructions reviewed Physical Exam Constitutional WD/WN, vitals as above Cardiovascular RRR, no murmur, no edema Gastrointestinal (Abdomen) normal bowel sounds, soft, nontender, no hepatosplenomegaly Genitourinary Incision is clean dry and intact uterus is nontender and firm Results & Data Vital Signs (Past 12 Hours) Vital Signs Temp Pulse Resp BP Pulse Ox 05/31/19 23:10 36.6 C 86 18 112/69 98 05/31/19 19:20 36.5 C 92 H 16 107/71 97
[2019-06-01 06:59] LABS: Hematocrit (blood only) 32.4 % (37-47); Hemoglobin 10.6 g/dL (12.0-16.0)
[2019-06-01] MEDS: SIMETHICONE 80 MG CHEW PO SCH ×2 (07:19→12:20)
[2019-06-01] MEDS: FERROUS SULFATE 325 MG TAB PO SCH (07:19)
[2019-06-01] MEDS: PRENATAL VITAMIN 1 TAB PO SCH (07:19)
[2019-06-01] MEDS: DOCUSATE SODIUM 100 MG CAP PO SCH (07:19)
--- NOTE | 2019-06-02 10:34 | Discharge Summary ---
Date of Service June 02, 2019 Discharge Data Consultations 05/29/19 08:28 Consult Anesthesiology Stat Procedures Performed Operation Date: 05/30/19 07:00 Actual Procedures p Section in LD(Bilateral) - Alexa Michelle MD Hospital Course (1) Failure to progress in labor, delivered, current hospitalization: Patient underwent uncomplicated primary low transverse section. She had an uncomplicated post op course and was discharged home on POD#2 with usual follow up instructions.
== END 2019-06-01 13:18 | disposition home or self-care (01) | DRG 787 ==
LOC: 4S1 07:34 → 4S2 05-30 12:36